=== PATIENT | female | born 1995 | race Caucasian/White ===

== ENCOUNTER 2017-03-25 18:45 | Emergency (ER) | payer SELFPAY ==
[~2017-03-25] VITALS: Ht 160 cm; Wt 51.0 kg
[2017-03-25 21:36] VITALS: BP 116/73
== END 2017-03-25 23:48 | disposition left against medical advice (07) ==
LOC: ER 23:32
DX: R10.9 Unspecified abdominal pain (principal); Z53.21 Procedure and treatment not carried out due to patient leaving prior to being seen by health care provider